=== PATIENT | female | born 1995 | race African-American/Black ===

== ENCOUNTER 2019-01-18 03:41 | Emergency (ER) | payer MEDICAID, OTHER ==
[~2019-01-18] VITALS: Ht 157.5 cm; Wt 52.0 kg
[2019-01-18] MEDS ORDERED: ACETAMINOPHEN 325MG TABLET PO STA (05:12)
[2019-01-18] MEDS ORDERED: ONDANSETRON 4MG ODT PO ONE (05:15)
[2019-01-18 05:34] LABS: BASOPHILS % 1.1 % (0.0-2.0); EOSINOPHILS % 1.4 % (0.0-5.0); HEMATOCRIT. 33.8 % (36.0-48.0); HEMOGLOBIN. 11.3 g/dL (12.0-16.0); LYMPHOCYTES % 44.6 % (20.0-50.0); MEAN CORPUSCULAR HEMOGLOBIN 30.6 pg (28.0-32.0); MEAN CORPUSCULAR VOLUME 91.5 fL (81.0-99.0); MEAN PLATELET VOLUME 7.8 fl (7.4-10.4); MONOCYTES % 13.8 % (2.0-8.0); NEUTROPHILS % 39.1 % (40.0-76.0); PLATELET 228 x1000/uL (130-400); RED CELL DISTRIBUTION WIDTH 13.8 % (11.6-14.6)
[2019-01-18 05:35] LABS: CLARITY URINE CLOUDY (CLEAR); COLOR URINE YELLOW (YELLOW); KETONES URINE TRACE (NEGATIVE); LEUKOCYTE ESTERASE URINE 3+ (NEGATIVE); NITRITE URINE NEGATIVE (NEGATIVE); OCCULT BLOOD URINE NEGATIVE (NEGATIVE); PH URINE 6.5 (4.5-8.0); PROTEIN URINE NEGATIVE (NEGATIVE); SPECIFIC GRAVITY URINE 1.023 (1.005-1.030)
[2019-01-18 05:56] LABS: B-HCG QUANTITATIVE 6286 mIU/mL (<3)
[2019-01-18 06:31] VITALS: BP 101/58
== END 2019-01-18 07:12 | disposition home or self-care (01) ==
LOC: ER 03:41
DX: O23.41 Unspecified infection of urinary tract in pregnancy, first trimester (principal); O21.9 Vomiting of pregnancy, unspecified; F12.10 Cannabis abuse, uncomplicated; Z3A.01 Less than 8 weeks gestation of pregnancy
CPT/HCPCS: 36415; 76801; 76817; 81003; 81025; 83690; 84702; 85025; 99284; Q0162

== ENCOUNTER 2019-09-11 00:12 | Observation (INO) | payer MEDICAID ==
[2019-09-11] MEDS ORDERED: pnv * (01:13)
[2019-09-13] MEDS ORDERED: FERR325T23 PO (06:49)
[2019-09-13] MEDS ORDERED: IBUP-2028 PO (06:49)
== END 2019-09-11 01:45 | disposition home or self-care (01) ==
LOC: 8 EST LDRP 00:12
PROVIDERS: ADMIT Specialist; ATTEND Specialist
DX: O62.9 Abnormality of forces of labor, unspecified (principal); O26.893 Other specified pregnancy related conditions, third trimester; R10.9 Unspecified abdominal pain; Z3A.39 39 weeks gestation of pregnancy
CPT/HCPCS: 99281; G0378

== ENCOUNTER 2020-06-09 00:21 | Emergency (ER) | payer MEDICAID ==
[~2020-06-09] VITALS: Ht 157.5 cm; Wt 47.0 kg
[~2020-06-09 00:21] MED LIST: FERR325T23 PO; IBUP-2028 PO
[2020-06-09 02:12] VITALS: BP 108/57
[2020-06-09] MEDS ORDERED: ACETAMINOPHEN 325MG TABLET PO ONE (02:30)
== END 2020-06-09 04:03 | disposition home or self-care (01) ==
LOC: ER 00:21
DX: J02.9 Acute pharyngitis, unspecified (principal); Z98.890 Other specified postprocedural states
CPT/HCPCS: 99282